=== PATIENT | male | born 1980 | race Caucasian/White ===

== ENCOUNTER 2019-07-04 22:09 | Emergency (ER) | payer MEDICAID, SELFPAY ==
[2019-07-04 22:10] VITALS: BP 132/90; PULSE 112; RESP 16; TEMP 36.5; O2SAT 97; BMI 22.4
--- NOTE | 2019-07-04 22:22 | ED.DCSUM_ITS ---
History of Present Illness Chief Complaint: Overdose Informant: Patient, Director Of Accounting Narrative: EMS tells me that anonymous phone call came to them stating that there was somebody who possibly had overdosed at the [facility]. When they arrived the patient was foaming at the mouth apneic and responsive. Located in his hand was a syringe. EMS administered Narcan by time to get the patient out to the ambulance he was awake stating that he is allergic to Narcan and that he did not do anything. He maintains the story here. He is asking to leave. Past Medical History - Allergies and Home Meds Allergies/Adverse Reactions: Allergies No Known Allergies Allergy (Verified 07/04/19 22:16) Primary Care Physician: [facility] Doctor,Out of [NON-STAFF] - Smoking Status: Current every day smoker Review of Systems General: Denies: Chills, Fever, Sweats Eyes: Denies: Visual changes - bilaterally, Diplopia ENT: Denies: Rhinorrhea, Sore throat Cardiovascular: Denies: Chest pain, Palpitations Respiratory: Denies: Dyspnea, Cough, Dyspnea on exertion Gastrointestinal: Denies: Abdominal pain, Nausea, Vomiting, Diarrhea, Melena, Hematochezia Genitourinary: Denies: Dysuria, Hematuria, Frequency Musculoskeletal: Denies: Back pain, Extremity Pain Skin: Denies: Rash, Wounds Neurological: Denies: Headache, Weakness, Numbness Physical Exam Vital Signs/Narrative: Vital Signs Temp Pulse Resp BP Pulse Ox 07/04/19 22:10 97.7 F L 112 H 16 132/90 H 97 Inital Vital Signs reviewed: Yes General: Well nourished, Well developed, No Acute Distress Head: Normocephalic, Atraumatic Eyes: Perrl, EOMI ENT: Moist mucous membranes, No rhinorrhea Neck: Supple, Nontender Cardiovascular: Regular rate, Regular rhythm, No murmurs Respiratory: No distress, CTA bilaterally, Chest nontender Abdomen: Soft, Nontender, Nondistended, Normal bowel sounds Back: Nontender, Normal Inspection Extremities: Nontender, No edema Skin: Normal color, No rash Neurological: Alert, Oriented x3, Cranial nerves II-XII grossly intact, Normal Strength, Normal Sensation Psychological: Normal affect, Normal Mood Diagnostic/Tx/Re-eval - Medical Decision Making After the patient was registered in the police left the patient subsequently got up and left the emergency department. He did not think the EMS crew or the staff for their hospitality. Unfortunately he did not receive a prescription for Narcan which I wrote for him despite his reported allergy as he does not s eem to have any allergic reaction to the Narcan that he was administered. A wish to give him referral to [facility] for rehab help. But he did not receive this. ED Disposition - Plan for ED Patient: Disposition: Home or Assisted Living Instructions: OVERDOSE, Opiate Prescriptions: Naloxone HCl [Narcan] 4 mg NS X1 PRN #1 spray PRN Reason: OPIATE OVERDOSE Prescription Printed Referrals: [facility] [STAFF PHYSICIAN] -
[2019-07-04 22:23] VITALS: BP 132/90; PULSE 112; RESP 16; O2SAT 97
--- NOTE | 2019-07-04 22:25 | ED.RN ---
pt A&Ox3 on arrival. Squad gave 4 mg total of Narcan nasally. denies taking anything tonight.
== END 2019-07-04 22:26 | disposition home or self-care (01) ==
PROVIDERS: Emergency Provider Emergency Medicine
DX: T40.601A Poisoning by unspecified narcotics, accidental (unintentional), initial encounter (principal); R06.81 Apnea, not elsewhere classified; F17.200 Nicotine dependence, unspecified, uncomplicated
CPT/HCPCS: 99284

== ENCOUNTER 2020-08-23 00:23 | Inpatient (IN) | payer MEDICAID, SELFPAY ==
[2020-08-23] VITALS (38 sets, daily range): BP systolic 95–147; BP diastolic 43–108; PULSE 75–110; RESP 13–19; TEMP 36.2–36.7; O2SAT 95–100; BMI 23.6; BMI 22.8; BMI 22.9
[2020-08-23] MEDS: Naloxone 2 MG/2 ML Syringe NASAL ×3 (00:25→00:30)
--- NOTE | 2020-08-23 00:28 | ED.DCSUM_ITS ---
History of Present Illness Chief Complaint: Overdose Informant: Friend Limited by: Stupor Narrative: 40-year-old male presenting with altered mental status. Apparently his friend had dropped him off and stated he might of done too much fentanyl. I was not able to speak with him. Patient is unresponsive. There are no external signs of trauma. Past Medical History Past Medical History: - - Unknown as patient is unresponsive Surgical History: noncontributory Lives: - - Unknown patient is unresponsive Alcohol: None - Unknown as patient is unresponsive Drugs: - - Reported fentanyl use - Family History Maternal Family History: Reports: - - Unable to obtain due to encephalopathy Paternal Family History: Reports: - - Unable to obtain due to encephalopathy Review of Systems ROS: Unable to Obtain Physical Exam Inital Vital Signs reviewed: Yes General: Well nourished, - - Unresponsive Eyes: - - Patient's eyes are mid dilated with no light reflex. ENT: Moist mucous membranes, No rhinorrhea Cardiovascular: Regular rhythm, Tachycardia Respiratory: Chest nontender, - - Agonal breathing Abdomen: Soft, Nondistended Extremities: Nontender, No edema Skin: Normal color, No rash. Negative for: Cyanosis Neurological: Stupor Psychological: - - Unresponsive Diagnostic/Tx/Re-eval Clinical Impression(s) from Imaging Studies Chest X-Ray 08/23/20 00:28 IMPRESSION: 1. Appropriate positioning of supportive devices 2. No acute cardiopulmonary disease Electronically Signed: Simon Andrew MD at 2:13 EST Tel , Service support , Brain CT 08/23/20 00:44 IMPRESSION: Normal unenhanced CT scan of the brain. Electronically Signed: Simon Andrew MD at 2:36 EST Tel , Service support , Laboratory Data 08/23/20 08/23/20 08/23/20 01:15 01:15 01:15 WBC Corrected WBC RBC Hgb Hct MCV MCH MCHC RDW Std Deviation RDW Coeff of Mattie Plt Count MPV Immature Gran % (Auto) Neut % (Auto) Lymph % (Auto) [place] % (Auto) Eos % (Auto) Baso % (Auto) Absolute Neuts (auto) Absolute Lymphs (auto) Total Counted Neutrophils % (Manual) Band Neutrophils % Lymphocytes % (Manual) Monocytes % (Manual) Eosinophils % (Manual) Basophils % (Manual) Metamyelocytes % Myelocytes % Promyelocytes % Blast Cells % Plasma Cell % (Manual) Other Cells % Nucleated RBC % Nucleated RBCs/100 WBC Differential Comment Diff Path Review Hypersegmented Neuts Atypical Lymphocytes Reactive Lymphocytes Smudge Cells Toxic Granulation Toxic Vacuolation Dohle Bodies Tim Rods Platelet Estimate Plt Morphology Comment RBC Morphology Polychromasia Hypochromasia Poikilocytosis Basophilic Stippling Anisocytosis Microcytosis Macrocytosis Spherocytes Sickle Cells Target Cells Tear Drop Cells Ovalocytes Stomatocytes Zuñiga-Louin Bodies Tamy Cells Bite Cells Crenated Cell Acanthocytes (Spur) Rouleaux Schistocytes Specimen Type Sample Site pH Bicarbonate Actual Total CO2 Base Excess O2 Saturation O2 % ABG pCO2 ABG pO2 Aquiles Test Respiration Rate O2 Delivery Device Liter Flow Minute Volume Vent Mode Inspiratory Time Expiratory Time Tidal Volume Mean Airway Pressure POC PEEP Peak Inspir Pressure POC Pressure Suppt Pressure Control Pressure High Pressure Low Time High Time Low EPAP IPAP Blood Gas Comments Crit Call To/Read Back Blood Gas Notified Whom Blood Gas Notified Time Clinical Comments Sodium 138 Potassium 4.1 Chloride 108 H Carbon Dioxide 20.0 L Anion Gap 10 BUN 11 Creatinine 1.79 H Estim Creat Clear Calc 57.21 Est GFR (MDRD) Af Amer 55 L Est GFR (MDRD) Non-Af 45 L BUN/Creatinine Ratio 6.1 L Glucose 133 H Calcium 8.9 Troponin I < 0.015 Urine Color Yellow Urine Clarity Clear Urine pH 7.0 Ur Specific [place] 1.010 Urine Protein 30 H Urine Glucose (UA) 50 H Urine Ketones Negative Urine Occult Blood 25 H Urine Nitrite Negative Urine Bilirubin Negative Urine Urobilinogen 1 H Ur Leukocyte Esterase Negative Urine RBC 0-5 SEEN Urine WBC 0 SEEN Ur Squamous Epith Cells 0 SEEN Urine Bacteria 0 SEEN Urine Mucus 0 SEEN Urine Opiates Screen NEGATIVE Urine Methadone Screen NEGATIVE Ur Barbiturates Screen NEGATIVE Ur Phencyclidine Scrn NEGATIVE Ur Amphetamines Screen POSITIVE H U Methamphetamin-MDMA POSITIVE H U Benzodiazepines Scrn NEGATIVE Urine Cocaine Screen NEGATIVE U Cannabinoids Screen NEGATIVE Ur Drug Screen Comment Ethyl Alcohol 08/23/20 08/23/20 08/23/20 01:50 01:50 02:17 WBC Cancelled Corrected WBC Cancelled RBC Cancelled Hgb Cancelled Hct Cancelled MCV Cancelled MCH Cancelled MCHC Cancelled RDW Std Deviation Cancelled RDW Coeff of Mattie Cancelled Plt Count Cancelled MPV Cancelled Immature Gran % (Auto) Cancelled Neut % (Auto) Cancelled Lymph % (Auto) Cancelled [place] % (Auto) Cancelled Eos % (Auto) Cancelled Baso % (Auto) Cancelled Absolute Neuts (auto) Cancelled Absolute Lymphs (auto) Cancelled Total Counted Cancelled Neutrophils % (Manual) Cancelled Band Neutrophils % Cancelled Lymphocytes % (Manual) Cancelled Monocytes % (Manual) Cancelled Eosinophils % (Manual) Cancelled Basophils % (Manual) Cancelled Metamyelocytes % Cancelled Myelocytes % Cancelled Promyelocytes % Cancelled Blast Cells % Cancelled Plasma Cell % (Manual) Cancelled Other Cells % Cancelled Nucleated RBC % Cancelled Nucleated RBCs/100 WBC Cancelled Differential Comment Cancelled Diff Path Review Cancelled Hypersegmented Neuts Cancelled Atypical Lymphocytes Cancelled Reactive Lymphocytes Cancelled Smudge Cells Cancelled Toxic Granulation Cancelled Toxic Vacuolation Cancelled Dohle Bodies Cancelled Tim Rods Cancelled Platelet Estimate Cancelled Plt Morphology Comment Cancelled RBC Morphology Cancelled Polychromasia Cancelled Hypochromasia Cancelled Poikilocytosis Cancelled Basophilic Stippling Cancelled Anisocytosis Cancelled Microcytosis Cancelled Macrocytosis Cancelled Spherocytes Cancelled Sickle Cells Cancelled Target Cells Cancelled Tear Drop Cells Cancelled Ovalocytes Cancelled Stomatocytes Cancelled Zuñiga-Louin Bodies Cancelled Tamy Cells Cancelled Bite Cells Cancelled Crenated Cell Cancelled Acanthocytes (Spur) Cancelled Rouleaux Cancelled Schistocytes Cancelled Specimen Type Cancelled Sample Site Cancelled pH Cancelled Bicarbonate Actual Cancelled Total CO2 Cancelled Base Excess Cancelled O2 Saturation Cancelled O2 % Cancelled ABG pCO2 Cancelled ABG pO2 Cancelled Aquiles Test Cancelled Respiration Rate Cancelled O2 Delivery Device Cancelled Liter Flow Cancelled Minute Volume Cancelled Vent Mode Cancelled Inspiratory Time Cancelled Expiratory Time Cancelled Tidal Volume Cancelled Mean Airway Pressure Cancelled POC PEEP Cancelled Peak Inspir Pressure Cancelled POC Pressure Suppt Cancelled Pressure Control Cancelled Pressure High Cancelled Pressure Low Cancelled Time High Cancelled Time Low Cancelled EPAP Cancelled IPAP Cancelled Blood Gas Comments Cancelled Crit Call To/Read Back Cancelled Blood Gas Notified Whom Cancelled Blood Gas Notified Time Cancelled Clinical Comments Cancelled Sodium Potassium Chloride Carbon Dioxide Anion Gap BUN Creatinine Estim Creat Clear Calc Est GFR (MDRD) Af Amer Est GFR (MDRD) Non-Af BUN/Creatinine Ratio Glucose Calcium Troponin I Urine Color Urine Clarity Urine pH Ur Specific [place] Urine Protein Urine Glucose (UA) Urine Ketones Urine Occult Blood Urine Nitrite Urine Bilirubin Urine Urobilinogen Ur Leukocyte Esterase Urine RBC Urine WBC Ur Squamous Epith Cells Urine Bacteria Urine Mucus Urine Opiates Screen Urine Methadone Screen Ur Barbiturates Screen Ur Phencyclidine Scrn Ur Amphetamines Screen U Methamphetamin-MDMA U Benzodiazepines Scrn Urine Cocaine Screen U Cannabinoids Screen Ur Drug Screen Comment Ethyl Alcohol < 3.0 08/23/20 08/23/20 02:37 03:20 WBC 15.5 H Corrected WBC RBC 5.02 Hgb 16.4 Hct 50.5 MCV 100.6 H MCH 32.7 H MCHC 32.5 RDW Std Deviation 46.1 H RDW Coeff of Mattie 12.5 Plt Count 179 MPV 9.6 Immature Gran % (Auto) 0.600 Neut % (Auto) 86.7 H Lymph % (Auto) 4.6 L [place] % (Auto) 7.7 Eos % (Auto) 0.1 Baso % (Auto) 0.3 Absolute Neuts (auto) 13.5 H Absolute Lymphs (auto) 0.71 L Total Counted Neutrophils % (Manual) Band Neutrophils % Lymphocytes % (Manual) Monocytes % (Manual) Eosinophils % (Manual) Basophils % (Manual) Metamyelocytes % Myelocytes % Promyelocytes % Blast Cells % Plasma Cell % (Manual) Other Cells % Nucleated RBC % 0 Nucleated RBCs/100 WBC Differential Comment Diff Path Review Hypersegmented Neuts Atypical Lymphocytes Reactive Lymphocytes Smudge Cells Toxic Granulation Toxic Vacuolation Dohle Bodies Tim Rods Platelet Estimate Plt Morphology Comment RBC Morphology Polychromasia Hypochromasia Poikilocytosis Basophilic Stippling Anisocytosis Microcytosis Macrocytosis Spherocytes Sickle Cells Target Cells Tear Drop Cells Ovalocytes Stomatocytes Zuñiga-Louin Bodies [place] Cells Bite Cells Crenated Cell Acanthocytes (Spur) Rouleaux Schistocytes Specimen Type ART Sample Site L RADIAL pH 7.34 L Bicarbonate Actual 23.8 Total CO2 25 Base Excess -2 O2 Saturation 97 O2 % 45 ABG pCO2 43.5 ABG pO2 94 Aquiles Test POS Respiration Rate 14 O2 Delivery Device Vent Liter Flow Minute Volume Vent Mode AC/VC Inspiratory Time Expiratory Time Tidal Volume 450 Mean Airway Pressure POC PEEP 5 Peak Inspir Pressure POC Pressure Suppt Pressure Control Pressure High Pressure Low Time High Time Low EPAP IPAP Blood Gas Comments Crit Call To/Read Back Blood Gas Notified Whom ER Blood Gas Notified Time 0242 Clinical Comments Sodium Potassium Chloride Carbon Dioxide Anion Gap BUN Creatinine Estim Creat Clear Calc Est GFR (MDRD) Af Amer Est GFR (MDRD) Non-Af BUN/Creatinine Ratio Glucose Calcium Troponin I Urine Color Urine Clarity Urine pH Ur Specific [place] Urine Protein Urine Glucose (UA) Urine Ketones Urine Occult Blood Urine Nitrite Urine Bilirubin Urine Urobilinogen Ur Leukocyte Esterase Urine RBC Urine WBC Ur Squamous Epith Cells Urine Bacteria Urine Mucus Urine Opiates Screen Urine Methadone Screen Ur Barbiturates Screen Ur Phencyclidine Scrn Ur Amphetamines Screen U Methamphetamin-MDMA U Benzodiazepines Scrn Urine Cocaine Screen U Cannabinoids Screen Ur Drug Screen Comment Ethyl Alcohol - Medical Decision Making 40-year-old male presenting with altered mental status. He had already received Narcan by EMS. He is not arousable. Patient has agonal breathing and he is snoring. After 9 doses of Narcan patient is still not arousable. Decision was made to intubate the patient and was intubated by myself on first attempt using 20 mg of etomidate and 40 mg of rocuronium. 8.0 ET tube was placed without difficulty. There is no visible trauma. Confirmation of placement was confirmed. Chest x-ray as interpreted by myself shows no acute cardiopulmonary process and ET tube is in place as well as a nasogastric tube. Nurses tried multiple times to obtain blood from him however they could not. I did do a femoral stick on him with 60 cc syringe which was partially returned by the lab as unusable. She did have an EKG performed which shows a sinus rhythm with a first-degree AV block and incomplete right bundle branch block and nonspecific T wave changes as interpreted by myself. Troponin is negative. BMP shows a creatinine of 1.79 and a GFR 45 and I have no comparison in our system. Urinalysis is negative for infection. Urine drug screen was positive for methamphetamine. Patient was discussed with hospitalist will admit him to the ICU for further monitoring. He did request that I discontinue propofol at this time. Impression: 1. Altered mental status 2. First-degree AV block 3. Elevated creatinine ED Disposition - Plan for ED Patient: Disposition: Acute Care Hospital [facility]
--- NOTE | 2020-08-23 00:28 | RAD_ITS ---
STUDY: X-RAY CHEST REASON FOR EXAM: Male, 40 years old. Respiratory failure status post overdose TECHNIQUE: Single AP portable view of the chest. COMPARISON: None. FINDINGS: Endotracheal tube is in place with the tip projecting 5.5 cm above the chase. Nasogastric tube tip projects over the region of the antrum of the stomach. No confluent airspace infiltrate. No pleural effusion or pneumothorax. There is no demonstrated pleural abnormality. Normal size heart. Normal mediastinum and amanda. Normal visualized pulmonary arteries. Normal visualized aortic arch and descending thoracic aorta. Normal visualized thoracic spine. Normal visualized ribs, clavicles, and shoulders. There is no demonstrated abnormality of the visualized soft tissue structures of the upper abdomen. RAD/Chest 1 View (Portable) IMPRESSION: 1. Appropriate positioning of supportive devices 2. No acute cardiopulmonary disease Electronically Signed: Simon Andrew MD at 2:13 EST Tel , Service support ,
--- NOTE | 2020-08-23 00:28 | EKG12_ITS ---
Test Reason : Blood Pressure : / mmHG Vent. Rate : 095 BPM Atrial Rate : 095 BPM P-R Int : 266 ms QRS Dur : 106 ms QT Int : 356 ms P-R-T Axes : 074 073 -05 degrees QTc Int : 447 ms Sinus rhythm with 1st degree A-V block Possible Left atrial enlargement Incomplete right bundle branch block Nonspecific T wave abnormality Abnormal ECG Confirmed by SACHIN HYDE, DANIEL ([id number]), assistant editor SUZAN STAFFORD ([id number]) on 08/28/2020 10:59:22 AM Referred By: Confirmed By:DANIEL STEPHENSON MD
[2020-08-23] MEDS: Naloxone 2 MG/2 ML Syringe IV ×4 (00:32→00:44)
[2020-08-23] MEDS: Naloxone 0.4 MG/ML Syringe IV (00:39)
--- NOTE | 2020-08-23 00:44 | CT_ITS ---
STUDY: CT BRAIN WITHOUT CONTRAST REASON FOR EXAM: Male, 40 years old. Altered mental status status post overdose RADIATION DOSAGE (If Supplied By Facility): CTDIvol = ( 44.99 ) mGy, DLP = ( 863.60 ) mGycm TECHNIQUE: Transaxial CT imaging of the brain was performed without administration of intravenous contrast material. Individualized dose optimization techniques were used for this CT. COMPARISON: No relevant priors. FINDINGS: Normal soft tissue structures. Normal calvarium. Normal size ventricles and extra-axial spaces for the patient''s age. Normal white matter tracts of the cerebral hemispheres. Normal basal ganglia and thalami. Normal brainstem. Normal cerebellum. There is no intracranial hemorrhage. There are no findings of an acute ischemic infarction. Normal visualized paranasal sinuses. CT/Brain/Head without Contrast IMPRESSION: Normal unenhanced CT scan of the brain. Electronically Signed: Simon Andrew MD at 2:36 EST Tel , Service support ,
[2020-08-23] MEDS: 0.9% Normal Saline 1,000 ML 1000 ML IV (00:50)
[2020-08-23] MEDS: Etomidate 20 MG/10 ML Vial IV (00:55)
[2020-08-23] MEDS: Rocuronium Bromide 50 MG/5 ML Vial 40 MG IV (00:56)
[2020-08-23] MEDS: Propofol 10MG/Ml 1,000 MG/100 ML Bottle 4.5 MG CONT INF (01:01)
[2020-08-23 01:31] LABS: Bacteria 0 SEEN /hpf (None Seen); Color, Urine Yellow (Yellow); Glucose, Dipstick 50 mg/dl (Normal); Ketone-Dipstick Negative (Negative); Leukocyte Esterase-Dipstick Negative /ul (Negative); Mucous, Urine 0 SEEN /hpf (<or=2+); Nitrite-Dipstick Negative (Negative); Occult Blood-Urine 25 /ul (Negative); Protein-Dipstick 30 mg/dl (Negative); Squamous Epithelial Cells - UA 0 SEEN /hpf (0-5); Urine Bilirubin Dipstick Negative (Negative); Urine Clarity Clear (Clear); Urine Urobilinogen 1 mg/dl (Normal); White Blood Cells 0 SEEN /hpf (0-5)
[2020-08-23 01:36] LABS: Red Blood Cells-Urine 0-5 SEEN /hpf (0-5)
[2020-08-23 01:45] LABS: Amphetamine Urine VISTA POSITIVE (<1000 ng/mL); Barbiturate Urine VISTA NEGATIVE (< 200 ng/mL); Benzodiazepine Urine VISTA NEGATIVE (< 200 ng/mL); Cocaine Urine VISTA NEGATIVE (< 300 ng/mL); Ecstacy Urine VISTA POSITIVE (< 500 ng/mL); Methadone Urine VISTA NEGATIVE (< 300 ng/mL); PCP Urine VISTA NEGATIVE (< 25 ng/mL); THC Urine VISTA NEGATIVE (< 50 ng/mL); Vista UDS pH Range 7
[2020-08-23 01:56] LABS: Anion Gap 10 (5-15); BUN 11 mg/dL (7-18); BUN/Creat Ratio 6.1 RATIO (10-20); Calcium,Total 8.9 mg/dL (8.5-10.1); Chloride 108 mmol/L (98-107); Creatinine, Serum 1.79 mg/dL (0.70-1.30); EST Glomerular Filtration Rate 45 mL/min (>60); Est Glom Filt Rate - Afr Amer 55 mL/min (>60); Estimated Creatinine Clearance 57.21 ml/min; Glucose 133 mg/dL (74-106); Potassium 4.1 mmol/L (3.5-5.1); Sodium Level 138 mmol/L (136-145)
[2020-08-23 02:15] LABS: Alcohol, Blood (Medical)-Serum < 3.0 mg/dL
[2020-08-23] MEDS: 0.9% Normal Saline 1,000 ML 999 ML IV (02:32)
[2020-08-23 03:12] LABS: Allen Test POS; Blood Gas Specimen Type ART; Mode AC/VC; SITE L RADIAL
[2020-08-23 03:13] LABS: FI02 45; O2 Delivery Device Vent; PEEP 5; RR 14; Vt 450
[2020-08-23 03:14] LABS: Base Excess -2 mmol/L (-2 to +2); Bicarbonate 23.8 mmol/L (22-26); PO2 94 mmHG (75-100); SO2 97 % (95-99); Total Carbon Dioxide 25 mmol/L; pCO2 43.5 mmHg (35-45)
[2020-08-23 03:27] LABS: Absolute Lymphocyte Count 0.71 X10^3/uL (0.83-4.51); Absolute Neutrophil Count 13.5 X10^3/uL (2.0-7.7); Basophil# 0.04 X10^3/uL; Basophil% 0.3 % (0-1); Eosinophil# 0.01 X10^3/uL; Eosinophils% 0.1 % (0-5); Hematocrit 50.5 % (40-54); Hemoglobin 16.4 g/dL (13.0-16.5); Lymphocyte # 0.71 X10^3/ul (4.0); Lymphocyte % 4.6 % (19-41); Mean Corp Hgb Conc 32.5 g/dL (32-36); Mean Corpuscular Hgb 32.7 pg (27.0-32.0); Mean Corpuscular Volume 100.6 fL (80-94); Mean Platelet Vol. 9.6 fl (6.2-12.0); Monocyte% 7.7 % (0-10); NRBC Flagged by Analyzer 0 % (0-5); Neutrophil # 13.45 X10^3/uL (2.7-7.7); Neutrophil % 86.7 % (47-70); Platelet Count 179 K/mm3 (150-450); RBC Distribution Width CV 12.5 % (11.6-14.6); RBC Distribution Width SD 46.1 fl (35.1-43.9); Red Blood Count 5.02 M/mm3 (4.6-6.2); White Blood Count 15.5 K/mm3 (4.4-11.0)
--- NOTE | 2020-08-23 03:52 | PCM.HP.STD ---
Problem List (1) Encephalopathy acute Status: Acute History of Present Illness Date of Admission: 08/23/20 Chief Complaint: unresponsiveness The patient is a 40 year old M with a significant history of drug abuse who was brought to emergency department unresponsive. Reportedly patient and his friend recently got up from drug rehabilitation. Patient's friend found patient in the bathroom unresponsive with a needle by his side. At the emergency department patient received about 10.4 mg of Narcan. Patient was intubated for low [place] Coma Scale. Past Medical History Medical History: Medical History (Last Updated 08/23/20 @ 04:[address] Celestino Gusman MD) Unable to obtain due to encephalopathy Surgical History: - - Unable to obtain due to encephalopathy Lives: - - Unknown patient is unresponsive Smoking Status: Unknown if ever smoked Alcohol: None - Unknown as patient is unresponsive Drugs: - - Reported fentanyl use - *Family History Maternal History Items: - - Unable to obtain due to encephalopathy Paternal History Items: - - Unable to obtain due to encephalopathy Review of Systems Unable to obtain accurate/complete ROS d/t: Comatose VTE Information - Inpt Only VTE Present on Admission: No VTE Mechan Device Prophylaxis: None VTE Pharm Prophylaxis ordered?: Yes Patient Problems: Active and Suspected Problems (Last Updated 08/23/20 @ 04:[address] Celestino Gusman MD) Encephalopathy acute (Acute) - Physical Exam Vitals/I&O's: Vital Signs Temp Pulse Resp BP Pulse Ox 97.5 F L 98 18 129/94 H 100 08/23/20 03:47 08/23/20 03:47 08/23/20 03:47 08/23/20 03:47 08/23/20 03:47 Oxygen Flow Rate (L/min) 15 Oxygen Delivery Method Mechanical Ventilator Weight: 74.9 kg Body Mass Index (BMI) 23.6 Intake and Output for Last 24 Hours 08/21/20 08/22/20 08/23/20 23:59 23:59 23:59 Intake Total 1002.7 / 1002.7 Balance 1002.7 / 1002.7 General: - - Comatose HEENT: Atraumatic, Normocephalic, - - Pupil sluggishly reacts to light. Neck: No Nodes, Trachea Midline Lungs: Clear to auscultation, Normal air movement Cardiovascular: Regular rate, No murmurs Abdomen: Bowel Sounds Present, Soft, Non Tender Extremities: No edema, Capillary Refill Less than 3 Seconds Skin: No rashes, No breakdown Musculoskeletal: No Tenderness to Palpation of Joints or Extremities Neurological: - - Comatose. No gag reflex. Psych/Mental Status: - - Comatose Microbiology Past 72 Hours 08/23/20 02:35 Mucosa - Nose SARS-CoV-2 Antigen (Rapid) - Final Laboratory Results 08/23/20 01:15: Sodium 138, Potassium 4.1, Chloride 108 H, Carbon Dioxide 20.0 L, Anion Gap 10, BUN 11, Creatinine 1.79 H, Estim Creat Clear Calc 57.21, Est GFR (MDRD) Af Amer 55 L, Est GFR (MDRD) Non-Af 45 L, BUN/Creatinine Ratio 6.1 L, Glucose 133 H, Calcium 8.9, Troponin I < 0.015 08/23/20 01:15: Urine Opiates Screen NEGATIVE, Urine Methadone Screen NEGATIVE, Ur Barbiturates Screen NEGATIVE, Ur Phencyclidine Scrn NEGATIVE, Ur Amphetamines Screen POSITIVE H, U Methamphetamin-MDMA POSITIVE H, U Benzodiazepines Scrn NEGATIVE, Urine Cocaine Screen NEGATIVE, U Cannabinoids Screen NEGATIVE, Ur Drug Screen Comment 08/23/20 01:15: Urine Color Yellow, Urine Clarity Clear, Urine pH 7.0, Ur Specific [place] 1.010, Urine Protein 30 H, Urine Glucose (UA) 50 H, Urine Ketones Negative, Urine Occult Blood 25 H, Urine Nitrite Negative, Urine Bilirubin Negative, Urine Urobilinogen 1 H, Ur Leukocyte Esterase Negative, Urine RBC 0-5 SEEN, Urine WBC 0 SEEN, Ur Squamous Epith Cells 0 SEEN, Urine Bacteria 0 SEEN, Urine Mucus 0 SEEN 08/23/20 01:50: WBC Cancelled, Corrected WBC Cancelled, RBC Cancelled, Hgb Cancelled, Hct Cancelled, MCV Cancelled, MCH Cancelled, MCHC Cancelled, RDW Std Deviation Cancelled, RDW Coeff of Mattie Cancelled, Plt Count Cancelled, MPV Cancelled, Immature Gran % (Auto) Cancelled, Neut % (Auto) Cancelled, Lymph % (Auto) Cancelled, [place] % (Auto) Cancelled, Eos % (Auto) Cancelled, Baso % (Auto) Cancelled, Absolute Neuts (auto) Cancelled, Absolute Lymphs (auto) Cancelled, Total Counted Cancelled, Neutrophils % (Manual) Cancelled, Band Neutrophils % Cancelled, Lymphocytes % (Manual) Cancelled, Monocytes % (Manual) Cancelled, Eosinophils % (Manual) Cancelled, Basophils % (Manual) Cancelled, Metamyelocytes % Cancelled, Myelocytes % Cancelled, Promyelocytes % Cancelled, Blast Cells % Cancelled, Plasma Cell % (Manual) Cancelled, Other Cells % Cancelled, Nucleated RBC % Cancelled, Nucleated RBCs/100 WBC Cancelled, Differential Comment Cancelled, Diff Path Review Cancelled, Hypersegmented Neuts Cancelled, Atypical Lymphocytes Cancelled, Reactive Lymphocytes Cancelled, Smudge Cells Cancelled, Toxic Granulation Cancelled, Toxic Vacuolation Cancelled, Dohle Bodies Cancelled, Tim Rods Cancelled, Platelet Estimate Cancelled, Plt Morphology Comment Cancelled, RBC Morphology Cancelled, Polychromasia Cancelled, Hypochromasia Cancelled, Poikilocytosis Cancelled, Basophilic Stippling Cancelled, Anisocytosis Cancelled, Microcytosis Cancelled, Macrocytosis Cancelled, Spherocytes Cancelled, Sickle Cells Cancelled, Target Cells Cancelled, Tear Drop Cells Cancelled, Ovalocytes Cancelled, Stomatocytes Cancelled, Zuñiga-[place] Bodies Cancelled, Tamy Cells Cancelled, Bite Cells Cancelled, Crenated Cell Cancelled, Acanthocytes (Spur) Cancelled, Rouleaux Cancelled, Schistocytes Cancelled 08/23/20 01:50: Ethyl Alcohol < 3.0 08/23/20 02:17: Specimen Type Cancelled, Sample Site Cancelled, pH Cancelled, Bicarbonate Actual Cancelled, Total CO2 Cancelled, Base Excess Cancelled, O2 Saturation Cancelled, O2 % Cancelled, ABG pCO2 Cancelled, ABG pO2 Cancelled, Aquiles Test Cancelled, Respiration Rate Cancelled, O2 Delivery Device Cancelled, Liter Flow Cancelled, Minute Volume Cancelled, Vent Mode Cancelled, Inspiratory Time Cancelled, Expiratory Time Cancelled, Tidal Volume Cancelled, Mean Airway Pressure Cancelled, POC PEEP Cancelled, Peak Inspir Pressure Cancelled, POC Pressure Suppt Cancelled, Pressure Control Cancelled, Pressure High Cancelled, Pressure Low Cancelled, Time High Cancelled, Time Low Cancelled, EPAP Cancelled, IPAP Cancelled, Blood Gas Comments Cancelled, Crit Call To/Read Back Cancelled, Blood Gas Notified Whom Cancelled, Blood Gas Notified Time Cancelled, Clinical Comments Cancelled 08/23/20 02:37: Specimen Type ART, Sample Site L RADIAL, pH 7.34 L, Bicarbonate Actual 23.8, Total CO2 25, Base Excess -2, O2 Saturation 97, O2 % 45, ABG pCO2 43.5, ABG pO2 94, Aquiles Test POS, Respiration Rate 14, O2 Delivery Device Vent, Vent Mode AC/VC, Tidal Volume 450, POC PEEP 5, Blood Gas Notified Whom ER , Blood Gas Notified Time 02408/23/20 03:20: WBC 15.5 H, RBC 5.02, Hgb 16.4, Hct 50.5, MCV 100.6 H, MCH 32.7 H, MCHC 32.5, RDW Std Deviation 46.1 H, RDW Coeff of Mattie 12.5, Plt Count 179, MPV 9.6, Immature Gran % (Auto) 0.600, Neut % (Auto) 86.7 H, Lymph % (Auto) 4.6 L, [place] % (Auto) 7.7, Eos % (Auto) 0.1, Baso % (Auto) 0.3, Absolute Neuts (auto) 13.5 H, Absolute Lymphs (auto) 0.71 L, Nucleated RBC % 0 Current Medications Propofol (Diprivan) 1,000 mg in 100 mls @ 4.494 mls/hr CONT INF .Q12H LAYLA; Protocol Last Titration: 08/23/20 01:37 Dose: 14.91 mcg/kg/min, 6.7 mls/hr Documented by: Assessment/Plan All Active Problems (Last Updated 08/23/20 @ 04:[address] Celestino Gusman MD) Encephalopathy acute (Acute) The patient is a 40 year old M with a significant history of drug abuse who was brought to emergency department unresponsive. Acute toxic encephalopathy/acute respiratory failure Intubated at the emergency department and placed on propofol drip at the ED. Discussed emergent dependent to wean off propofol. Brain CT unremarkable Toxicology was reviewed. It showed a positive amphetamines. We will check salicylate level; Tylenol level and ammonia. Review of community records showed that on 07/04/2019 patient was diagnosed by a poisoning related to narcotics. We will admit patient to intensive care unit. Leukocytosis Review of medical department labs showed white count of 15.5 with neutrophilic predominance. Likely reactive Trend CBC JOEY Creatinine of 1.79 Review of community records shows that on 09/23/2018 patient creatinine was 2.22; and on 02/06/2018 patient's creatinine was 0.90. BUN 11 BUN over creatinine 6.1 IV hydration with LR ordered Trend BMP Avoid nephrotoxics Stress ulcer prophylaxis Pepcid ordered DVT prophylaxis Subcutaneous Lovenox ordered Inpatient E&M: 05301 Init Hosp L3
[2020-08-23] MEDS: Famotidine 200 MG/20 ML MDV 20 MG in 0.9% Normal Saline (Pres. free 8 ML 300 MG IV ×2 (05:20→23:00)
[2020-08-23] MEDS: Lactated Ringers 1,000 ML 75 ML IV (05:20)
[2020-08-23 05:32] LABS: Absolute Lymphocyte Count 0.89 X10^3/uL (0.83-4.51); Basophil# 0.02 X10^3/uL; Basophil% 0.1 % (0-1); Eosinophil# 0.01 X10^3/uL; Eosinophils% 0.1 % (0-5); Hematocrit 43.9 % (40-54); Hemoglobin 14.5 g/dL (13.0-16.5); Lymphocyte # 0.89 X10^3/ul (4.0); Lymphocyte % 5.9 % (19-41); Mean Corpuscular Hgb 32.3 pg (27.0-32.0); Mean Corpuscular Volume 97.8 fL (80-94); Mean Platelet Vol. 9.8 fl (6.2-12.0); Monocyte# 1.11 X10^3/uL; Monocyte% 7.4 % (0-10); NRBC Flagged by Analyzer 0 % (0-5); Neutrophil # 13.01 X10^3/uL (2.7-7.7); Neutrophil % 86.1 % (47-70); Platelet Count 215 K/mm3 (150-450); RBC Distribution Width CV 12.5 % (11.6-14.6); RBC Distribution Width SD 44.8 fl (35.1-43.9); Red Blood Count 4.49 M/mm3 (4.6-6.2); White Blood Count 15.1 K/mm3 (4.4-11.0)
[2020-08-23 05:47] LABS: Anion Gap 7 (5-15); BUN 12 mg/dL (7-18); BUN/Creat Ratio 8.7 RATIO (10-20); Calcium,Total 8.5 mg/dL (8.5-10.1); Chloride 108 mmol/L (98-107); Creatinine, Serum 1.38 mg/dL (0.70-1.30); EST Glomerular Filtration Rate 61 mL/min (>60); Est Glom Filt Rate - Afr Amer 74 mL/min (>60); Glucose 97 mg/dL (74-106); Potassium 3.9 mmol/L (3.5-5.1); Sodium Level 140 mmol/L (136-145)
[2020-08-23 06:41] LABS: Acetaminophen (Tylenol) Level < 2.0 ug/mL (10.0-30.0); Salicylate 2.7 mg/dL (2.8-20.0)
--- NOTE | 2020-08-23 06:55 | CON.PCM_ITS ---
Problem List (1) Opiate or related narcotic overdose Status: Suspected Qualifiers: Encounter type: initial encounter Injury intent: accidental or unintentional Qualified Code(s): T40.601A - Poisoning by unspecified narcotics, accidental (unintentional), initial encounter (2) Encephalopathy acute Status: Acute (3) Acute respiratory failure Status: Acute Qualifiers: Respiratory failure complication: unspecified whether with hypoxia or hypercapnia Qualified Code(s): J96.00 - Acute respiratory failure, unspecified whether with hypoxia or hypercapnia Reason for Consult Date of Consultation: 08/23/20 Reason for Consultation: Respiratory failure History of Present Illness: The patient is a 40 year old M, with unclear past medical history, who presented to [facility] on 08/23/2020 secondary to altered mental status. Patient reportedly was dropped off by a friend stating that he had done too much fentanyl. Reportedly, patient was found in the bathroom with a needle on his lap. Patient was unresponsive on presentation and no additional information was available. There reportedly was no signs of trauma. In the ER, patient had received multiple doses of Narcan without improvements. Patient was subsequently intubated for airway protection. Imaging of the head did not show any acute trauma. Laboratory data did show an elevated creatinine at 1.8. Troponins were negative. Tox screen was positive for amphetamines, but not opiates. Patient did have an elevated hemoglobin at 16.4. ABG following intubation showed adequate oxygenation and ventilation. Patient was admitted to the intensive care unit for further evaluation. Since being in the intensive care unit, patient has remained Metacam actively ventilated. Patient has good vent synchrony and has had more movement. Patient will answer brief questions and reportedly is denying drug use. Patient would not open his eyes on my evaluation. Unable to obtain a review of systems. Past Medical History Medical History: Medical History (Last Updated 08/23/20 @ 04:[address] Celestino Gusman MD) Unable to obtain due to encephalopathy Surgical History: - - Unable to obtain due to encephalopathy Lives: - - Unknown patient is unresponsive Smoking Status: Unknown if ever smoked Alcohol: None - Unknown as patient is unresponsive Drugs: - - Reported fentanyl use - *Family History Maternal History Items: - - Unable to obtain due to encephalopathy Paternal History Items: - - Unable to obtain due to encephalopathy Review of Systems Unable to obtain accurate/complete ROS d/t: Toxic encephalopathy Patient Problems: Active and Suspected Problems (Last Updated 08/23/20 @ 04:[address] Celestino Gusman MD) Encephalopathy acute (Acute) Objective: All imaging was personally reviewed. Chest x-ray and CT of the chest are unremarkable. Support devices in appropriate position. - Physical Exam Vitals/I&O's: Vital Signs Temp Pulse Resp BP Pulse Ox 36.3 C L 86 14 143/90 H 100 08/23/20 06:00 08/23/20 06:00 08/23/20 06:00 08/23/20 06:00 08/23/20 06:00 Oxygen Flow Rate (L/min) 15 Oxygen Delivery Method Mechanical Ventilator Weight: 72.6 kg Body Mass Index (BMI) 22.8 Intake and Output for Last 24 Hours 08/21/20 08/22/20 08/23/20 23:59 23:59 23:59 Intake Total 2027.66 / 2027.66 Output Total 1050 / 1050 Balance 977.66 / 977.66 General: - - Intubated. Not following commands. Fair synchrony. HEENT: Atraumatic, PERRLA, EOMI, Normocephalic, - - No scleral icterus or injection noted Oral: Moist Mucosa, No Gingival or Mucosal Lesions/ Ulcerations Neck: Supple, No JVD, No Nodes, Trachea Midline Lungs: Clear to auscultation, Normal air movement, No rhonchi, No wheeze, No rales, - - Symmetric expansion Cardiovascular: Regular rate, Regular Rhythm, Normal S1, Normal S2, No murmurs, No rub noted, No Gallop Abdomen: Bowel Sounds Present, Soft, Non Tender, Non-Distended Extremities: No clubbing, No cyanosis, No edema Skin: No rashes, No breakdown Musculoskeletal: No Tenderness to Palpation of Joints or Extremities Lymphatic: No Cervical, Supraclavicular, or Inguinal Adenopathy Neurological: Cranial nerves II-XII grossly intact, Neuro grossly intact, Motor Exam 5/5 strength throughout Psych/Mental Status: Alert and oriented to time, place, person, mood and affect Microbiology Past 72 Hours 08/23/20 02:35 Mucosa - Nose SARS-CoV-2 Antigen (Rapid) - Final Laboratory Results 08/23/20 01:15: Sodium 138, Potassium 4.1, Chloride 108 H, Carbon Dioxide 20.0 L , Anion Gap 10, BUN 11, Creatinine 1.79 H, Estim Creat Clear Calc 57.21, Est GFR (MDRD) Af Amer 55 L, Est GFR (MDRD) Non-Af 45 L, BUN/Creatinine Ratio 6.1 L, Glucose 133 H, Calcium 8.9, Troponin I < 0.015 08/23/20 01:15: Urine Opiates Screen NEGATIVE, Urine Methadone Screen NEGATIVE, Ur Barbiturates Screen NEGATIVE, Ur Phencyclidine Scrn NEGATIVE, Ur Amphetamines Screen POSITIVE H, U Methamphetamin-MDMA POSITIVE H, U Benzodiazepines Scrn NEGATIVE, Urine Cocaine Screen NEGATIVE, U Cannabinoids Screen NEGATIVE, Ur Drug Screen Comment 08/23/20 01:15: Urine Color Yellow, Urine Clarity Clear, Urine pH 7.0, Ur Specific [place] 1.010, Urine Protein 30 H, Urine Glucose (UA) 50 H, Urine Ketones Negative, Urine Occult Blood 25 H, Urine Nitrite Negative, Urine Bilirubin Negative, Urine Urobilinogen 1 H, Ur Leukocyte Esterase Negative, Urine RBC 0-5 SEEN, Urine WBC 0 SEEN, Ur Squamous Epith Cells 0 SEEN, Urine Bacteria 0 SEEN, Urine Mucus 0 SEEN 08/23/20 01:50: WBC Cancelled, Corrected WBC Cancelled, RBC Cancelled, Hgb Cancelled, Hct Cancelled, MCV Cancelled, MCH Cancelled, MCHC Cancelled, RDW Std Deviation Cancelled, RDW Coeff of Mattie Cancelled, Plt Count Cancelled, MPV Cancelled, Immature Gran % (Auto) Cancelled, Neut % (Auto) Cancelled, Lymph % (Auto) Cancelled, [place] % (Auto) Cancelled, Eos % (Auto) Cancelled, Baso % (Auto) Cancelled, Absolute Neuts (auto) Cancelled, Absolute Lymphs (auto) Cancelled, Total Counted Cancelled, Neutrophils % (Manual) Cancelled, Band Neutrophils % Cancelled, Lymphocytes % (Manual) Cancelled, Monocytes % (Manual) Cancelled, Eosinophils % (Manual) Cancelled, Basophils % (Manual) Cancelled, Metamyelocytes % Cancelled, Myelocytes % Cancelled, Promyelocytes % Cancelled, Blast Cells % Cancelled, Plasma Cell % (Manual) Cancelled, Other Cells % Cancelled, Nucleated RBC % Cancelled, Nucleated RBCs/100 WBC Cancelled, Differential Comment Cancel led, Diff Path Review Cancelled, Hypersegmented Neuts Cancelled, Atypical Lymphocytes Cancelled, Reactive Lymphocytes Cancelled, Smudge Cells Cancelled, Toxic Granulation Cancelled, Toxic Vacuolation Cancelled, Dohle Bodies Cancelled, Tim Rods Cancelled, Platelet Estimate Cancelled, Plt Morphology Comment Cancelled, RBC Morphology Cancelled, Polychromasia Cancelled, Hypochromasia Cancelled, Poikilocytosis Cancelled, Basophilic Stippling Cancelled, Anisocytosis Cancelled, Microcytosis Cancelled, Macrocytosis Cancelled, Spherocytes Cancelled, Sickle Cells Cancelled, Target Cells Cancelled, Tear Drop Cells Cancelled, Ovalocytes Cancelled, Stomatocytes Cancelled, Zuñiga-[place] Bodies Cancelled, [place] Cells Cancelled, Bite Cells Cancelled, Crenated Cell Cancelled, Acanthocytes (Spur) Cancelled, Rouleaux Cancelled, Schistocytes Cancelled 08/23/20 01:50: Ethyl Alcohol < 3.0 08/23/20 01:50: Salicylates 2.7 L, Acetaminophen < 2.0 L 08/23/20 02:17: Specimen Type Cancelled, Sample Site Cancelled, pH Cancelled, Bicarbonate Actual Cancelled, Total CO2 Cancelled, Base Excess Cancelled, O2 Saturation Cancelled, O2 % Cancelled, ABG pCO2 Cancelled, ABG pO2 Cancelled, [place] Test Cancelled, Respiration Rate Cancelled, O2 Delivery Device Cancelled, Liter Flow Cancelled, Minute Volume Cancelled, Vent Mode Cancelled, Inspiratory Time Cancelled, Expiratory Time Cancelled, Tidal Volume Cancelled, Mean Airway Pressure Cancelled, POC PEEP Cancelled, Peak Inspir Pressure Cancelled, POC Pressure Suppt Cancelled, Pressure Control Cancelled, Pressure High Cancelled, Pressure Low Cancelled, Time High Cancelled, Time Low Cancelled, EPAP Cancelled, IPAP Cancelled, Blood Gas Comments Cancelled, Crit Call To/Read Back Cancelled, Blood Gas Notified Whom Cancelled, Blood Gas Notified Time Cancelled, Clinical Comments Cancelled 08/23/20 02:37: Specimen Type ART, Sample Site L RADIAL, pH 7.34 L, Bicarbonate Actual 23.8, Total CO2 25, Base Excess -2, O2 Saturation 97, O2 % 45, ABG pCO2 43.5, ABG pO2 94, [place] Test POS, Respiration Rate 14, O2 Delivery Device Vent, Vent Mode AC/VC, Tidal Volume 450, POC PEEP 5, Blood Gas Notified Whom NITESH HYDE, Blood Gas Notified Time 02408/23/20 03:20: WBC 15.5 H, RBC 5.02, Hgb 16.4, Hct 50.5, MCV 100.6 H, MCH 32.7 H, MCHC 32.5, RDW Std Deviation 46.1 H, RDW Coeff of Mattie 12.5, Plt Count 179, MPV 9.6, Immature Gran % (Auto) 0.600, Neut % (Auto) 86.7 H, Lymph % (Auto) 4.6 L, [place] % (Auto) 7.7, Eos % (Auto) 0.1, Baso % (Auto) 0.3, Absolute Neuts (auto) 13.5 H, Absolute Lymphs (auto) 0.71 L, Nucleated RBC % 0 08/23/20 05:20: Salicylates Cancelled, Acetaminophen Cancelled 08/23/20 05:20: Ammonia 15.0 08/23/20 05:20: WBC 15.1 H, RBC 4.49 L, Hgb 14.5, Hct 43.9, MCV 97.8 H, MCH 32.3 H, MCHC 33.0, RDW Std Deviation 44.8 H, RDW Coeff of Mattie 12.5, Plt Count 215, MPV 9.8, Immature Gran % (Auto) 0.400, Neut % (Auto) 86.1 H, Lymph % (Auto) 5.9 L, [place] % (Auto) 7.4, Eos % (Auto) 0.1, Baso % (Auto) 0.1, Absolute Neuts (auto) 13.0 H, Absolute Lymphs (auto) 0.89, Nucleated RBC % 0 08/23/20 05:20: Sodium 140, Potassium 3.9, Chloride 108 H, Carbon Dioxide 25.0, Anion Gap 7, BUN 12, Creatinine 1.38 H, Estim Creat Clear Calc 73.80, Est GFR (MDRD) Af Amer 74, Est GFR (MDRD) Non-Af 61, BUN/Creatinine Ratio 8.7 L, Glucose 97, Calcium 8.5 Current Medications Acetaminophen (Acetaminophen 325 Mg Tablet) 650 mg PO Q6H PRN PRN PRN Reason: Pain Score 1-10/Temp > 100.7 F Albuterol Sulfate (Albuterol 2.5 Mg/3 Ml Vial.Neb.) 2.5 mg INHALATION Q2H PRN PRN PRN Reason: SOB/Wheezing Chlorhexidine Gluconate (Chlorhexidine 15 Ml) 15 ml PO BID LAYLA Enoxaparin Sodium (Enoxaparin 40 Mg/0.4 Ml Syringe) 40 mg SC DAILY [facility] Lactated Ringer's () 1,000 mls @ 75 mls/hr IV .[id number] LAYLA Last Admin: 08/23/20 05:20 Dose: 75 mls/hr Documented by: Famotidine 20 mg/ Sodium (Chloride) 10 mls @ 300 mls/hr IV Q12 [facility] Last Infusion: 08/23/20 05:22 Dose: Infused Documented by: Sodium Chloride () 250 mls @ 15 mls/hr IV .[id number] PRN PRN Reason: Saline Flush Sodium Chloride () 250 mls @ 15 mls/hr IV .[id number] PRN PRN Reason: Additional IVPB Infusion Ondansetron HCl (Ondansetron 4 Mg/2 Ml Vial) 4 mg IV Q8H PRN PRN PRN Reason: NAUSEA/VOMITING Sodium Chloride (0.9% Saline Lock 10 Ml Syringe) 10 - 40 ml IV UD PRN PRN Reason: SALINE FLUSH Clinical Impression(s) from Imaging Studies Chest X-Ray 08/23/20 00:28 IMPRESSION: 1. Appropriate positioning of supportive devices 2. No acute cardiopulmonary disease Electronically Signed: Simon Andrew MD at 2:13 EST Tel , Service support , Brain CT 08/23/20 00:44 IMPRESSION: Normal unenhanced CT scan of the brain. Electronically Signed: Simon Andrew MD at 2:36 EST Tel , Service support , Assessment/Plan Active and Suspected Problems (Last Updated 08/23/20 @ 04:[address] Celestino Gusman MD) Encephalopathy acute (Acute) RECOMMENDATIONS: 1. Continue mechanical ventilation pending improved mental status 2. Aggressive fluid resuscitation 3. Anticipate possible extubation later today 4. Social work for possible support services if patient agreeable IMPRESSIONS: 1. Acute hypoxic respiratory failure secondary to presumed opiate overdose Details are unclear at this time. Appears to be unintentional. Patient still not able to follow commands consistently, so we will continue with mechanical ventilation for airway support. Vent settings appear to be okay at this time. ABG shows adequate oxygenation and ventilation. Anticipate possible extubation later today once metabolism can take place. 2. Probable acute kidney injury Preliminary data is unclear on whether patient has chronic kidney disease. Clinical suspicion for prerenal etiology secondary to volume depletion. Will aggressively hydrate and reevaluate. May be leading to increased metabolite retention. 3. Probable opiate abuse/poor history Complicates care, management, recovery and prognosis. Will attempt to clarify once patient can be extubated. TIME: 32 minutes critical care time spent addressing patient's acute hypoxic respiratory failure, acute kidney injury, review of all data and collaboration with care team (5:30 AM to 6:30 AM) [id number]: [id number] Critical care first hour
[2020-08-23] MEDS: Enoxaparin 40 MG/0.4 ML Syringe SC (08:01)
--- NOTE | 2020-08-23 10:26 | CASEMGMT ---
Addendum entered by Anel Gonzalez 08/23/20 15:01: Social Work Referral Date: 08/23/20 Date of Assessment: 08/23/20 Reason for Consult: Drug Overdose SW to room to meet with patient for initial assessment. SW introduced self and role at [facility]. Pt is resting in bed, does open eyes upon SW interaction and although lethargic, pt is able to converse appropriately with this worker. Pt is A & O, knows he is in the hospital but does not know why. SW verified pt address and pt corrected stating he now lives with his mother and daughter. Pt states he has a new phone number and does not know what it is. Address changed on pt demographic sheet. SW inquired about pt daughter and who is caring for her. Pt states daughter is 11 years old and pt mother currently has custody of daughter. PCP: No PCP Specialists: pt states that he recently has had a telehealth visit with a doctor that he cannot remember who prescribed him Wellbutrin and Gabapentin. [facility] Insurance: [employer] Medicaid Prescription Benefit: Yes LNOK: Shantel Daigle,mother. Pt asked if anyone had been notified of pt admission to the hospital. SW informed pt that his mother is the only person listed on demographic sheet and staff was waiting on pt permission to call her prior to making contact. Pt considered options and then told SW that it would be OK to contact pt mother. SW offered to change demographic sheet and list someone else as emergency contact and pt did not give another name to be listed. Nursing updated that pt gave permission to notify pt mother. Living Arrangements: Pt states he feels safe at home. Pt lives with his mother and 11 year old daughter in a one story home. Pt is independent with self care. Employment: Pt is currently not employed Transportation: Pt drives and states no transportation concerns at this time. Mental Health: Diagnosis: pt states he has anxiety and that the counselor at informed him he has depression but pt states he does not believe this medications: Pt states he as recently been started on Wellbutrin for depression and Gabapentin for anxiety by Telehealth Lady Suicidal Ideation: Pt denies any feelings of Suicidal ideation at this time or previously. Substance Abuse: Alcohol: Pt states he will have a beer once every other week Marijuana: Pt denies use Heroin: Pt denies current use, states it has been a couple years since he used Fentanyl: Pt denies current use, states he never really liked this drug Methamphetamines: Pt admits to using but states he cannot remember when the last time he used was Prescription Drugs: Pt denies using prescription drugs in an unsubscribed manner Treatment: Pt is currently in a Recovery program with [facility]. Pt states that he was court ordered to go to [facility]. Pt was recently released from this program and a referral was made for followup care with [facility]. Pt states he started at [facility] a few weeks ago but don't know if I will go back. SW inquired about court appointment of program and then pt conceded that he will have to return to the program. Pt also states he has been to a Rehabilitation facility in [place] several years ago. Pt is unable to tell SW about events from 24 hours ago. Pt is uncertain who was with him, where he was, how he got to the hospital or why he needed hospitalized. GISSELLE discussed with pt reason for hospitalization and that friend brought pt to the ED. Pt has no recollection of this. Pt continues to complain of sore throat and dry mouth, closing eyes to rest during conversation. GISSELLE informed pt that SW will revisit pt tomorrow when pt is feeling better. Pt is agreeable with a second visit from GISSELLE. Plan: GISSELLE to follow up with pt regarding Drug use and treatment tomorrow. ZENOBIA Reynolds Original Note: Social Work GISSELLE attempted to meet with pt. Pt is resting in bed with eyes closed. GISSELLE attempted to speak with pt but at this time pt is groggy with difficulty answering questions. GISSELLE informed pt that SW will be back later today for assessment. ZENOBIA Reynolds
[2020-08-24] VITALS (12 sets, daily range): BP systolic 99–112; BP diastolic 40–68; PULSE 60–86; RESP 14–19; TEMP 36.4–36.6; O2SAT 96–99
[2020-08-24 06:43] LABS: Anion Gap 6 (5-15); BUN 11 mg/dL (7-18); Calcium,Total 8.5 mg/dL (8.5-10.1); Chloride 107 mmol/L (98-107); Creatinine, Serum 0.92 mg/dL (0.70-1.30); EST Glomerular Filtration Rate 98 mL/min (>60); Est Glom Filt Rate - Afr Amer 118 mL/min (>60); Estimated Creatinine Clearance 111.31 ml/min; Glucose 87 mg/dL (74-106); Potassium 3.7 mmol/L (3.5-5.1); Sodium Level 138 mmol/L (136-145)
--- NOTE | 2020-08-24 07:06 | PN_ITS ---
Subjective: Patient did well overnight. Patient with no respiratory complaints overnight and is tolerating room air. Patient is not reporting any abdominal pain, fever, chills or headache. General: Alert, Oriented x3, Cooperative, No apparent distress, Well developed, Well nourished, - - No conversational dyspnea HEENT: Atraumatic, PERRLA, EOMI, Normocephalic, - - No scleral icterus or injection noted Oral: Moist Mucosa, No Gingival or Mucosal Lesions/ Ulcerations Neck: Supple, No JVD, No Nodes, Trachea Midline Lungs: Clear to auscultation, Normal air movement, No rhonchi, No wheeze, No rales Cardiovascular: Regular rate, Regular Rhythm, Normal S1, Normal S2, No murmurs, No rub noted, No Gallop Abdomen: Bowel Sounds Present, Soft, Non Tender, Non-Distended Extremities: No clubbing, No cyanosis, No edema Skin: No rashes, No breakdown Musculoskeletal: No Tenderness to Palpation of Joints or Extremities Lymphatic: No Cervical, Supraclavicular, or Inguinal Adenopathy Neurological: Cranial nerves II-XII grossly intact, Deep Tendon Reflexes 2+/4 a nd Symmetrical, Motor Exam 5/5 strength throughout Psych/Mental Status: Alert and oriented to time, place, person, mood and affect Vital Signs Temp Pulse Resp BP Pulse Ox 36.6 C 67 14 109/51 L 97 08/24/20 00:00 08/24/20 06:00 08/24/20 06:00 08/24/20 06:00 08/24/20 06:00 Oxygen Flow Rate (L/min) 15 Oxygen Delivery Method Room Air Weight: 73.4 kg Body Mass Index (BMI) 22.8 Intake and Output for Last 24 Hours 08/22/20 08/23/20 08/24/20 23:59 23:59 23:59 Intake Total 3381.41 / 3381.41 120 / 120 Output Total 1900 / 1900 225 / 225 Balance 1481.41 / 1481.41 -105 / -105 Labs (Last 48 Hours) 08/23/20 08/23/20 08/23/20 01:15 01:15 01:15 WBC Corrected WBC RBC Hgb Hct MCV MCH MCHC RDW Std Deviation RDW Coeff of Mattie Plt Count MPV Immature Gran % (Auto) Neut % (Auto) Lymph % (Auto) [place] % (Auto) Eos % (Auto) Baso % (Auto) Absolute Neuts (auto) Absolute Lymphs (auto) Total Counted Neutrophils % (Manual) Band Neutrophils % Lymphocytes % (Manual) Monocytes % (Manual) Eosinophils % (Manual) Basophils % (Manual) Metamyelocytes % Myelocytes % Promyelocytes % Blast Cells % Plasma Cell % (Manual) Other Cells % Nucleated RBC % Nucleated RBCs/100 WBC Differential Comment Diff Path Review Hypersegmented Neuts Atypical Lymphocytes Reactive Lymphocytes Smudge Cells Toxic Granulation Toxic Vacuolation Dohle Bodies Tim Rods Platelet Estimate Plt Morphology Comment RBC Morphology Polychromasia Hypochromasia Poikilocytosis Basophilic Stippling Anisocytosis Microcytosis Macrocytosis Spherocytes Sickle Cells Target Cells Tear Drop Cells Ovalocytes Stomatocytes Zu[place] Bodies Hancock Cells Bite Cells Crenated Cell Acanthocytes (Spur) Rouleaux Schistocytes Specimen Type Sample Site pH Bicarbonate Actual Total CO2 Base Excess O2 Saturation O2 % ABG pCO2 ABG pO2 Aquiles Test Respiration Rate O2 Delivery Device Liter Flow Minute Volume Vent Mode Inspiratory Time Expiratory Time Tidal Volume Mean Airway Pressure POC PEEP Peak Inspir Pressure POC Pressure Suppt Pressure Control Pressure High Pressure Low Time High Time Low EPAP IPAP Blood Gas Comments Crit Call To/Read Back Blood Gas Notified Whom Blood Gas Notified Time Clinical Comments Sodium 138 Potassium 4.1 Chloride 108 H Carbon Dioxide 20.0 L Anion Gap 10 BUN 11 Creatinine 1.79 H Estim Creat Clear Calc 57.21 Est GFR (MDRD) Af Amer 55 L Est GFR (MDRD) Non-Af 45 L BUN/Creatinine Ratio 6.1 L Glucose 133 H Calcium 8.9 Ammonia Troponin I < 0.015 Urine Color Yellow Urine Clarity Clear Urine pH 7.0 Ur Specific [place] 1.010 Urine Protein 30 H Urine Glucose (UA) 50 H Urine Ketones Negative Urine Occult Blood 25 H Urine Nitrite Negative Urine Bilirubin Negative Urine Urobilinogen 1 H Ur Leukocyte Esterase Negative Urine RBC 0-5 SEEN Urine WBC 0 SEEN Ur Squamous Epith Cells 0 SEEN Urine Bacteria 0 SEEN Urine Mucus 0 SEEN Salicylates Urine Opiates Screen NEGATIVE Urine Methadone Screen NEGATIVE Acetaminophen Ur Barbiturates Screen NEGATIVE Ur Phencyclidine Scrn NEGATIVE Ur Amphetamines Screen POSITIVE H U Methamphetamin-MDMA POSITIVE H U Benzodiazepines Scrn NEGATIVE Urine Cocaine Screen NEGATIVE U Cannabinoids Screen NEGATIVE Ur Drug Screen Comment Ethyl Alcohol 03/04/21 03/04/21 03/04/21 01:50 01:50 01:50 WBC Cancelled Corrected WBC Cancelled RBC Cancelled Hgb Cancelled Hct Cancelled MCV Cancelled MCH Cancelled MCHC Cancelled RDW Std Deviation Cancelled RDW Coeff of Mattie Cancelled Plt Count Cancelled MPV Cancelled Immature Gran % (Auto) Cancelled Neut % (Auto) Cancelled Lymph % (Auto) Cancelled [place] % (Auto) Cancelled Eos % (Auto) Cancelled Baso % (Auto) Cancelled Absolute Neuts (auto) Cancelled Absolute Lymphs (auto) Cancelled Total Counted Cancelled Neutrophils % (Manual) Cancelled Band Neutrophils % Cancelled Lymphocytes % (Manual) Cancelled Monocytes % (Manual) Cancelled Eosinophils % (Manual) Cancelled Basophils % (Manual) Cancelled Metamyelocytes % Cancelled Myelocytes % Cancelled Promyelocytes % Cancelled Blast Cells % Cancelled Plasma Cell % (Manual) Cancelled Other Cells % Cancelled Nucleated RBC % Cancelled Nucleated RBCs/100 WBC Cancelled Differential Comment Cancelled Diff Path Review Cancelled Hypersegmented Neuts Cancelled Atypical Lymphocytes Cancelled Reactive Lymphocytes Cancelled Smudge Cells Cancelled Toxic Granulation Cancelled Toxic Vacuolation Cancelled Dohle Bodies Cancelled Tim Rods Cancelled Platelet Estimate Cancelled Plt Morphology Comment Cancelled RBC Morphology Cancelled Polychromasia Cancelled Hypochromasia Cancelled Poikilocytosis Cancelled Basophilic Stippling Cancelled Anisocytosis Cancelled Microcytosis Cancelled Macrocytosis Cancelled Spherocytes Cancelled Sickle Cells Cancelled Target Cells Cancelled Tear Drop Cells Cancelled Ovalocytes Cancelled Stomatocytes Cancelled [place] Bodies Cancelled Hancock Cells Cancelled Bite Cells Cancelled Crenated Cell Cancelled Acanthocytes (Spur) Cancelled Rouleaux Cancelled Schistocytes Cancelled Specimen Type Sample Site pH Bicarbonate Actual Total CO2 Base Excess O2 Saturation O2 % ABG pCO2 ABG pO2 Aquiles Test Respiration Rate O2 Delivery Device Liter Flow Minute Volume Vent Mode Inspiratory Time Expiratory Time Tidal Volume Mean Airway Pressure POC PEEP Peak Inspir Pressure POC Pressure Suppt Pressure Control Pressure High Pressure Low Time High Time Low EPAP IPAP Blood Gas Comments Crit Call To/Read Back Blood Gas Notified Whom Blood Gas Notified Time Clinical Comments Sodium Potassium Chloride Carbon Dioxide Anion Gap BUN Creatinine Estim Creat Clear Calc Est GFR (MDRD) Af Amer Est GFR (MDRD) Non-Af BUN/Creatinine Ratio Glucose Calcium Ammonia Troponin I Urine Color Urine Clarity Urine pH Ur Specific [place] Urine Protein Urine Glucose (UA) Urine Ketones Urine Occult Blood Urine Nitrite Urine Bilirubin Urine Urobilinogen Ur Leukocyte Esterase Urine RBC Urine WBC Ur Squamous Epith Cells Urine Bacteria Urine Mucus Salicylates 2.7 L Urine Opiates Screen Urine Methadone Screen Acetaminophen < 2.0 L Ur Barbiturates Screen Ur Phencyclidine Scrn Ur Amphetamines Screen U Methamphetamin-MDMA U Benzodiazepines Scrn Urine Cocaine Screen U Cannabinoids Screen Ur Drug Screen Comment Ethyl Alcohol < 3.0 08/23/20 08/23/20 08/23/20 02:17 02:37 03:20 WBC 15.5 H Corrected WBC RBC 5.02 Hgb 16.4 Hct 50.5 MCV 100.6 H MCH 32.7 H MCHC 32.5 RDW Std Deviation 46.1 H RDW Coeff of Mattie 12.5 Plt Count 179 MPV 9.6 Immature Gran % (Auto) 0.600 Neut % (Auto) 86.7 H Lymph % (Auto) 4.6 L [place] % (Auto) 7.7 Eos % (Auto) 0.1 Baso % (Auto) 0.3 Absolute Neuts (auto) 13.5 H Absolute Lymphs (auto) 0.71 L Total Counted Neutrophils % (Manual) Band Neutrophils % Lymphocytes % (Manual) Monocytes % (Manual) Eosinophils % (Manual) Basophils % (Manual) Metamyelocytes % Myelocytes % Promyelocytes % Blast Cells % Plasma Cell % (Manual) Other Cells % Nucleated RBC % 0 Nucleated RBCs/100 WBC Differential Comment Diff Path Review Hypersegmented Neuts Atypical Lymphocytes Reactive Lymphocytes Smudge Cells Toxic Granulation Toxic Vacuolation Dohle Bodies Tim Rods Platelet Estimate Plt Morphology Comment RBC Morphology Polychromasia Hypochromasia Poikilocytosis Basophilic Stippling Anisocytosis Microcytosis Macrocytosis Spherocytes Sickle Cells Target Cells Tear Drop Cells Ovalocytes Stomatocytes Zu[place] Bodies Tamy Cells Bite Cells Crenated Cell Acanthocytes (Spur) Rouleaux Schistocytes Specimen Type Cancelled ART Sample Site Cancelled L RADIAL pH Cancelled 7.34 L Bicarbonate Actual Cancelled 23.8 Total CO2 Cancelled 25 Base Excess Cancelled -2 O2 Saturation Cancelled 97 O2 % Cancelled 45 ABG pCO2 Cancelled 43.5 ABG pO2 Cancelled 94 Aquiles Test Cancelled POS Respiration Rate Cancelled 14 O2 Delivery Device Cancelled Vent Liter Flow Cancelled Minute Volume Cancelled Vent Mode Cancelled AC/VC Inspiratory Time Cancelled Expiratory Time Cancelled Tidal Volume Cancelled 450 Mean Airway Pressure Cancelled POC PEEP Cancelled 5 Peak Inspir Pressure Cancelled POC Pressure Suppt Cancelled Pressure Control Cancelled Pressure High Cancelled Pressure Low Cancelled Time High Cancelled Time Low Cancelled EPAP Cancelled IPAP Cancelled Blood Gas Comments Cancelled Crit Call To/Read Back Cancelled Blood Gas Notified Whom Cancelled ER Blood Gas Notified Time Cancelled 0242 Clinical Comments Cancelled Sodium Potassium Chloride Carbon Dioxide Anion Gap BUN Creatinine Estim Creat Clear Calc Est GFR (MDRD) Af Amer Est GFR (MDRD) Non-Af BUN/Creatinine Ratio Glucose Calcium Ammonia Troponin I Urine Color Urine Clarity Urine pH Ur Specific [place] Urine Protein Urine Glucose (UA) Urine Ketones Urine Occult Blood Urine Nitrite Urine Bilirubin Urine Urobilinogen Ur Leukocyte Esterase Urine RBC Urine WBC Ur Squamous Epith Cells Urine Bacteria Urine Mucus Salicylates Urine Opiates Screen Urine Methadone Screen Acetaminophen Ur Barbiturates Screen Ur Phencyclidine Scrn Ur Amphetamines Screen U Methamphetamin-MDMA U Benzodiazepines Scrn Urine Cocaine Screen U Cannabinoids Screen Ur Drug Screen Comment Ethyl Alcohol 08/23/20 08/23/20 08/23/20 05:20 05:20 05:20 WBC 15.1 H Corrected WBC RBC 4.49 L Hgb 14.5 Hct 43.9 MCV 97.8 H MCH 32.3 H MCHC 33.0 RDW Std Deviation 44.8 H RDW Coeff of Mattie 12.5 Plt Count 215 MPV 9.8 Immature Gran % (Auto) 0.400 Neut % (Auto) 86.1 H Lymph % (Auto) 5.9 L [place] % (Auto) 7.4 Eos % (Auto) 0.1 Baso % (Auto) 0.1 Absolute Neuts (auto) 13.0 H Absolute Lymphs (auto) 0.89 Total Counted Neutrophils % (Manual) Band Neutrophils % Lymphocytes % (Manual) Monocytes % (Manual) Eosinophils % (Manual) Basophils % (Manual) Metamyelocytes % Myelocytes % Promyelocytes % Blast Cells % Plasma Cell % (Manual) Other Cells % Nucleated RBC % 0 Nucleated RBCs/100 WBC Differential Comment Diff Path Review Hypersegmented Neuts Atypical Lymphocytes Reactive Lymphocytes Smudge Cells Toxic Granulation Toxic Vacuolation Dohle Bodies Tim Rods Platelet Estimate Plt Morphology Comment RBC Morphology Polychromasia Hypochromasia Poikilocytosis Basophilic Stippling Anisocytosis Microcytosis Macrocytosis Spherocytes Sickle Cells Target Cells Tear Drop Cells Ovalocytes Stomatocytes [place] Bodies Hancock Cells Bite Cells Crenated Cell Acanthocytes (Spur) Rouleaux Schistocytes Specimen Type Sample Site pH Bicarbonate Actual Total CO2 Base Excess O2 Saturation O2 % ABG pCO2 ABG pO2 Aquiles Test Respiration Rate O2 Delivery Device Liter Flow Minute Volume Vent Mode Inspiratory Time Expiratory Time Tidal Volume Mean Airway Pressure POC PEEP Peak Inspir Pressure POC Pressure Suppt Pressure Control Pressure High Pressure Low Time High Time Low EPAP IPAP Blood Gas Comments Crit Call To/Read Back Blood Gas Notified Whom Blood Gas Notified Time Clinical Comments Sodium Potassium Chloride Carbon Dioxide Anion Gap BUN Creatinine Estim Creat Clear Calc Est GFR (MDRD) Af Amer Est GFR (MDRD) Non-Af BUN/Creatinine Ratio Glucose Calcium Ammonia 15.0 Troponin I Urine Color Urine Clarity Urine pH Ur Specific [place] Urine Protein Urine Glucose (UA) Urine Ketones Urine Occult Blood Urine Nitrite Urine Bilirubin Urine Urobilinogen Ur Leukocyte Esterase Urine RBC Urine WBC Ur Squamous Epith Cells Urine Bacteria Urine Mucus Salicylates Cancelled Urine Opiates Screen Urine Methadone Screen Acetaminophen Cancelled Ur Barbiturates Screen Ur Phencyclidine Scrn Ur Amphetamines Screen U Methamphetamin-MDMA U Benzodiazepines Scrn Urine Cocaine Screen U Cannabinoids Screen Ur Drug Screen Comment Ethyl Alcohol 08/23/20 08/24/20 05:20 06:10 WBC Corrected WBC RBC Hgb Hct MCV MCH MCHC RDW Std Deviation RDW Coeff of Mattie Plt Count MPV Immature Gran % (Auto) Neut % (Auto) Lymph % (Auto) [place] % (Auto) Eos % (Auto) Baso % (Auto) Absolute Neuts (auto) Absolute Lymphs (auto) Total Counted Neutrophils % (Manual) Band Neutrophils % Lymphocytes % (Manual) Monocytes % (Manual) Eosinophils % (Manual) Basophils % (Manual) Metamyelocytes % Myelocytes % Promyelocytes % Blast Cells % Plasma Cell % (Manual) Other Cells % Nucleated RBC % Nucleated RBCs/100 WBC Differential Comment Diff Path Review Hypersegmented Neuts Atypical Lymphocytes Reactive Lymphocytes Smudge Cells Toxic Granulation Toxic Vacuolation Dohle Bodies Tim Rods Platelet Estimate Plt Morphology Comment RBC Morphology Polychromasia Hypochromasia Poikilocytosis Basophilic Stippling Anisocytosis Microcytosis Macrocytosis Spherocytes Sickle Cells Target Cells Tear Drop Cells Ovalocytes Stomatocytes [place] Bodies Tamy Cells Bite Cells Crenated Cell Acanthocytes (Spur) Rouleaux Schistocytes Specimen Type Sample Site pH Bicarbonate Actual Total CO2 Base Excess O2 Saturation O2 % ABG pCO2 ABG pO2 Aquiles Test Respiration Rate O2 Delivery Device Liter Flow Minute Volume Vent Mode Inspiratory Time Expiratory Time Tidal Volume Mean Airway Pressure POC PEEP Peak Inspir Pressure POC Pressure Suppt Pressure Control Pressure High Pressure Low Time High Time Low EPAP IPAP Blood Gas Comments Crit Call To/Read Back Blood Gas Notified Whom Blood Gas Notified Time Clinical Comments Sodium 140 138 Potassium 3.9 3.7 Chloride 108 H 107 Carbon Dioxide 25.0 25.0 Anion Gap 7 6 BUN 12 11 Creatinine 1.38 H 0.92 Estim Creat Clear Calc 73.80 111.31 Est GFR (MDRD) Af Amer 74 118 Est GFR (MDRD) Non-Af 61 98 BUN/Creatinine Ratio 8.7 L 12.0 Glucose 97 87 Calcium 8.5 8.5 Ammonia Troponin I Urine Color Urine Clarity Urine pH Ur Specific [place] Urine Protein Urine Glucose (UA) Urine Ketones Urine Occult Blood Urine Nitrite Urine Bilirubin Urine Urobilinogen Ur Leukocyte Esterase Urine RBC Urine WBC Ur Squamous Epith Cells Urine Bacteria Urine Mucus Salicylates Urine Opiates Screen Urine Methadone Screen Acetaminophen Ur Barbiturates Screen Ur Phencyclidine Scrn Ur Amphetamines Screen U Methamphetamin-MDMA U Benzodiazepines Scrn Urine Cocaine Screen U Cannabinoids Screen Ur Drug Screen Comment Ethyl Alcohol Microbiology 08/23/20 08:05 Sputum, Induced/Lukens Gram Stain - Final 08/23/20 02:35 Mucosa - Nose SARS-CoV-2 Antigen (Rapid) - Final Medical Necessity - Tobacco Use Smoking Status: Unknown if ever smoked Assessment/Plan All Active Problems (Last Updated 08/23/20 @ 04:[address] Celestino Gusman MD) Encephalopathy acute (Acute) Acute respiratory failure (Acute) RECOMMENDATIONS: 1. Increase activity as tolerated 2. No need for additional fluids 3. Anticipate discharge later today 4. Social work for possible support services if patient agreeable IMPRESSIONS: 1. Acute hypoxic respiratory failure secondary to presumed opiate overdose Details are unclear at this time. Appears to be unintentional. Patient still not able to follow commands consistently, so we will continue with mechanical ventilation for airway support. Vent settings appear to be okay at this time. ABG shows adequate oxygenation and ventilation. Anticipate possible extubation later today once metabolism can take place. 2. Probable acute kidney injury Resolved. Clinical suspicion for prerenal etiology secondary to volume depletion. Responded well to resuscitation. No follow-up is likely indicated. 3. Probable opiate abuse/poor history Complicates care, management, recovery and prognosis. Will attempt to clarify once patient can be extubated. Inpatient E&M: [id number] Subs Hosp L2
--- NOTE | 2020-08-24 09:07 | DCINST_ITS ---
- Discharge Diagnoses Current Active Problems: Current Active and Chronic Problems (Last Updated 08/23/20 @ 04:[address] Celestino Gusman MD) Encephalopathy acute (Acute) Acute respiratory failure (Acute) You will use the following diet at home:: Regular Your food should be the consistency of: Regular Discharge Activity: Return to Normal Activity Weight Bearing Status: Full weight bearing Call your doctor if you observe: Fever of 101 or Higher, Shortness of breath, Dizziness, Fainting spells, Chest pain, Increased palpitations (irregular heartbeat), Uncontrolled pain Allergies/Adverse Reactions: Allergies buprenorphine [From Suboxone] Adverse Reaction (Verified 08/23/20 09:29) Swelling naloxone [From Suboxone] Adverse Reaction (Verified 08/23/20 09:29) Swelling Medications to take at Discharge Bupropion HCl [Bupropion Xl] 300 mg PO DAILY 08/23/20 Gabapentin [Neurontin] 300 mg PO TIDCM 08/23/20 Primary Care Physician: Care Physician,No Primary [Primary Care Provider] - Please follow up with your Primary Care Physician in: 2 weeks. Test Results: Test results from this visit will be discussed in further detail at your follow- up appointment, if applicable.
--- NOTE | 2020-08-24 10:01 | DS.PCM_ITS ---
Discharge Date and Diagnosis - Problem List Patient Problems: Active and Suspected Problems (Last Updated 08/23/20 @ 04:[address] Celestino Gusman MD) Encephalopathy acute (Acute) Opiate or related narcotic overdose (Suspected) Acute respiratory failure (Acute) Date of Admission: 08/23/20 Date of Discharge: 08/24/20 - Primary Discharge Diagnosis Acute Problems: Active Problems (Last Updated 08/23/20 @ 04:[address] Celestino Gusman MD) #1 acute hypoxic respiratory failure secondary to opioid overdose. #2 opioid overdose. #3 acute kidney injury. Suspected Problems: Suspected Problems (Last Updated 08/23/20 @ 04:[address] Celestino Gusman MD) Opiate or related narcotic overdose (Suspected) Hospital Course and Treatment Imaging Results: Clinical Impression(s) from Imaging Studies Chest X-Ray 08/23/20 00:28 IMPRESSION: 1. Appropriate positioning of supportive devices 2. No acute cardiopulmonary disease Electronically Signed: Simon Andrew MD at 2:13 EST Tel , Service support , Brain CT 08/23/20 00:44 IMPRESSION: Normal unenhanced CT scan of the brain. Electronically Signed: Simon Andrew MD at 2:36 EST Tel , Service support , Dr. Smith, critical care. Operations: None Procedures: Intubation Summary of Care Provided: Patient seen and examined on the day of discharge and appeared to be stable to be discharged home. He was extubated yesterday and respiratory status has been stable, has been on room air since then. His vital signs are stable. The patient is a 40 year old M presented to the emergency room because of altered mental status. Reportedly, his friend dropped the patient to the hospital and stated that he might have done too much and fentanyl and upon arrival to ED, patient was unresponsive. There was no evidence of body trauma. He was given Narcan by EMS but he remained unresponsive and unarousable. He had agonal breathing in the ED and he was intubated and started mechanical ventilation. His urine drug screen was positive for amphetamines and methamphetamines. Blood alcohol level was less than 3. Routine blood work revealed leukocytosis which is reactive and found to have acute kidney injury. Admission creatinine was 1.79. Patient was treated with IV fluids and his kidney function returned back to normal. CT scan brain showed no acute finding s. Chest x-ray showed no acute infiltrate or consolidation. COVID-19 antigen came back negative. Patient was extubated on the same day and he did very well. Respiratory status remained stable. Patient showed dramatic and quick improvement after extubation. On the day of discharge, patient again did very well, remained on room air, his vitals were stable and he remained afebrile. His kidney function returned back to normal. Patient discharged home in a stable medical condition, discharged on his previous home medications including bupropion and Neurontin without any changes, recommended follow-up with PCP in 2 weeks. Patient Problems: Active and Suspected Problems (Last Updated 08/23/20 @ 04:[address] Celestino Gusman MD) Encephalopathy acute (Acute) Opiate or related narcotic overdose (Suspected) Acute respiratory failure (Acute) - Physical Exam Vitals/I&O's: Vital Signs Temp Pulse Resp BP Pulse Ox 97.6 F L 67 16 109/57 L 97 08/24/20 08:00 08/24/20 08:00 08/24/20 08:00 08/24/20 08:00 08/24/20 08:00 Oxygen Flow Rate (L/min) 15 Oxygen Delivery Method Room Air Weight: 161 lb 13.109 oz Body Mass Index (BMI) 22.8 Intake and Output for Last 24 Hours 08/22/20 08/23/20 08/24/20 23:59 23:59 23:59 Intake Total 3381.41 / 3381.41 120 / 120 Output Total 1900 / 1900 225 / 225 Balance 1481.41 / 1481.41 -105 / -105 General: Alert, Oriented x3, Cooperative, No apparent distress HEENT: Atraumatic, PERRLA, EOMI, Normocephalic Oral: Moist Mucosa, No Gingival or Mucosal Lesions/ Ulcerations Neck: Supple, No JVD, Negative Carotid Bruits, Trachea Midline, Thyroid Normal Size and Texture Lungs: Clear to auscultation, Normal air movement, No rhonchi, No wheeze, No rales Cardiovascular: Regular rate, Regular Rhythm, Normal S1, Normal S2, PMI Normal Abdomen: Bowel Sounds Present, Soft, Non Tender, Non-Distended, No Hepato- splenomegaly Extremities: No clubbing, No cyanosis, No edema Skin: No rashes, No breakdown Lymphatic: No Cervical, Supraclavicular, or Inguinal Adenopathy Neurological: Cranial nerves II-XII grossly intact, Motor Exam 5/5 strength throughout Psych/Mental Status: Normal Affect, Appropriate Microbiology Past 72 Hours 08/23/20 08:05 Sputum, Induced/Lukens Gram Stain - Final 08/23/20 02:35 Mucosa - Nose SARS-CoV-2 Antigen (Rapid) - Final Laboratory Results 08/24/20 06:10: Sodium 138, Potassium 3.7, Chloride 107, Carbon Dioxide 25.0, Anion Gap 6, BUN 11, Creatinine 0.92, Estim Creat Clear Calc 111.31, Est GFR (MDRD) Af Amer 118, Est GFR (MDRD) Non-Af 98, BUN/Creatinine Ratio 12.0, Glucose 87, Calcium 8.5 Current Medications Acetaminophen (Acetaminophen 325 Mg Tablet) 650 mg PO Q6H PRN PRN PRN Reason: Pain Score 1-10/Temp > 100.7 F Albuterol Sulfate (Albuterol 2.5 Mg/3 Ml Vial.Neb.) 2.5 mg INHALATION Q2H PRN PRN PRN Reason: SOB/Wheezing Enoxaparin Sodium (Enoxaparin 40 Mg/0.4 Ml Syringe) 40 mg SC DAILY FOR[facility]LY [facility], 1928–1983 Last Admin: 08/23/20 08:01 Dose: 40 mg Documented by: Famotidine (Famotidine 20 Mg Tablet) 20 mg PO BID FOR[facility]LY [facility], [facility]1983 Sodium Chloride () 250 mls @ 15 mls/hr IV .[id number] PRN PRN Reason: Saline Flush Sodium Chloride () 250 mls @ 15 mls/hr IV .[id number] PRN PRN Reason: Additional IVPB Infusion Ondansetron HCl (Ondansetron 4 Mg/2 Ml Vial) 4 mg IV Q8H PRN PRN PRN Reason: NAUSEA/VOMITING Sodium Chloride (0.9% Saline Lock 10 Ml Syringe) 10 - 40 ml IV UD PRN PRN Reason: SALINE FLUSH Discharge Activity: Return to Normal Activity Weight Bearing Status: Full weight bearing Call your doctor if you observe: Fever of 101 or Higher, Shortness of breath, Dizziness, Fainting spells, Chest pain, Increased palpitations (irregular heartbeat), Uncontrolled pain Home Medications: Medications to take at Discharge Bupropion HCl [Bupropion Xl] 300 mg PO DAILY 08/23/20 Gabapentin [Neurontin] 300 mg PO TIDCM 08/23/20 Primary Care Physician: Care Physician,No Primary [Primary Care Provider] - Please follow up with your Primary Care Physician in: 2 weeks. Disposition: Home Minutes spent on discharge:: 32 Patient Condition:: Stable Medical Necessity - Tobacco Use Smoking Status: Unknown if ever smoked Meaningful Use Info Meaningful Use Diagnoses (Choose all that apply): None applicable Inpatient E&M: [id number] [facility]
--- NOTE | 2020-08-24 10:02 | CASEMGMT ---
Social Work SW met with pt and reintroduced self. Pt is much more awake today, A&O. Pt does remember conversation with this SW yesterday. SW provided list of PCP's for pt. Pt states he use to see Dr. Zapata but it has been a very long time. SW explained that he would likely need to get re established with physician's office or pt can choose a different doctor. SW spoke with pt regarding drug use. Pt stating he still cannot remember what happened over the last 48 hours. Pt stating that he was released from the [facility] ordered [facility] program about 2 1/2 months ago and had started with and IOP at [facility]. Pt attends treatment M-Th weekly. Pt states next appointment is on Thursday and he plans to go to treatment. 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 Pt denies using drugs at his parents house and continues to state I cannot understand where I was or what happened to me on Thursday night. SW provided education and encouragement to continue with IOP program at [facility] and pt is agreeable. Pt states his mother will be able to pick him up and transport home today. Plan: Continue with IOP program at [facility] ZENOBIA Reynolds
[2020-08-30 06:57] LABS: pH 7.35 (7.35-7.45)
== END 2020-08-24 11:06 | disposition home or self-care (01) | DRG 133 ==
LOC: ED 01:00 → ICU 04:03
PROVIDERS: Internal Medicine Critical Care Medicine; Admitting Provider Hospitalist; Emergency Provider Student in an Organized Health Care Education/Training Program; Visit Provider Hospitalist
DX: J96.01 Acute respiratory failure with hypoxia (principal); N17.9 Acute kidney failure, unspecified; T40.2X1A Poisoning by other opioids, accidental (unintentional), initial encounter; I44.0 Atrioventricular block, first degree; R79.89 Other specified abnormal findings of blood chemistry
CPT/HCPCS: 31500; 31720; 36415; 36600; 51702; 70450; 71045; 80048; 80307; 80329; 81001; 82077; 82140; 82803; 84484; 85025; 87070; 87186; 87205; 87426; 93005; 94002; 94660; 97802; 99251; 99285; J7030; J7120; A4216; G0463; G0480; J2310; J3490

== ENCOUNTER 2020-09-07 00:55 | Emergency (ER) | payer MEDICAID, SELFPAY ==
[2020-08-23 05:00] VITALS: BMI 22.8
[2020-09-07 00:55] VITALS: BP 119/81; PULSE 65; RESP 18; TEMP 35.8; O2SAT 96
[2020-09-07 00:57] VITALS: BP 119/81; PULSE 65; RESP 18; TEMP 35.8; O2SAT 96; BMI 24.5
--- NOTE | 2020-09-07 01:18 | ED.DCSUM_ITS ---
History of Present Illness Chief Complaint: Substance Abuse Informant: Patient Narrative: 40-year-old male presents after being revived by EMS and PD with Narcan. Patient does not remember the event. Denies any drug abuse. Has no complaints at this time. Past Medical History - Allergies and Home Meds Allergies/Adverse Reactions: Allergies buprenorphine [From Suboxone] Adverse Reaction (Verified 08/29/20 12:55) Swelling naloxone [From Suboxone] Adverse Reaction (Verified 08/29/20 12:55) Swelling Primary Care Physician: Care Physician,No Primary [Primary Care Provider] - Prior records reviewed: Yes Past Medical History: None Surgical History: no surgical history, - - Unable to obtain due to encep halopathy Lives: Alone Smoking Status: Current every day smoker Alcohol: None Drugs: None - Family History Maternal Family History: Reports: - - Unable to obtain due to encephalopathy Paternal Family History: Reports: - - Unable to obtain due to encephalopathy Review of Systems General: Denies: Chills, Fever, Sweats Eyes: Denies: Visual changes - bilaterally, Diplopia ENT: Denies: Rhinorrhea, Sore throat Cardiovascular: Denies: Chest pain, Palpitations Respiratory: Denies: Dyspnea, Cough, Dyspnea on exertion Gastrointestinal: Denies: Abdominal pain, Nausea, Vomiting, Diarrhea, Melena, Hematochezia Genitourinary: Denies: Dysuria, Hematuria, Frequency Musculoskeletal: Denies: Back pain, Extremity Pain Skin: Denies: Rash, Wounds Neurological: Denies: Headache, Weakness, Numbness Physical Exam Vital Signs/Narrative: Vital Signs Temp Pulse Resp BP Pulse Ox 09/07/20 00:57 96.4 F L 65 18 119/81 H 96 09/07/20 00:55 96.4 F L 65 18 119/81 H 96 Inital Vital Signs reviewed: Yes General: Well nourished, Well developed, No Acute Distress Head: Normocephalic, Atraumatic Eyes: Perrl, EOMI ENT: Moist mucous membranes, No rhinorrhea Neck: Supple, Nontender Cardiovascular: Regular rate, Regular rhythm, No murmurs Respiratory: No distress, CTA bilaterally, Chest nontender Abdomen: Soft, Nontender, Nondistended, Normal bowel sounds Back: Nontender, Normal Inspection Extremities: Nontender, No edema Skin: Normal color, No rash Neurological: Alert, Oriented x3, Cranial nerves II-XII grossly intact, Normal Strength, Normal Sensation Psychological: Normal affect, Normal Mood Diagnostic/Tx/Re-eval - Medical Decision Making Patient appears well and nontoxic. Vital signs within normal limits. No hypoxemia. Alert and oriented. Tolerating p.o. Patient wishes to leave and called his mother who will pick him up and monitor him at home. Patient stable at time of discharge. Impression: 1. Opiate overdose ED Disposition - Plan for ED Patient: Disposition: Home or Assisted Living Instructions: ED Overdose, Opiate Referrals: Karlene Nowak DO [STAFF PHYSICIAN] - 3-5 Days
[2020-09-07 01:56] VITALS: BP 130/80; PULSE 102; RESP 18; O2SAT 98
== END 2020-09-07 01:57 | disposition home or self-care (01) ==
PROVIDERS: Emergency Provider Emergency Medicine
DX: T40.601A Poisoning by unspecified narcotics, accidental (unintentional), initial encounter (principal); F17.200 Nicotine dependence, unspecified, uncomplicated
CPT/HCPCS: 99284